=== PATIENT | male | born 1980 | race Caucasian/White ===

== ENCOUNTER 2020-06-03 06:29 | Emergency (ER) | payer MEDICARE ==
[~2020-06-03] VITALS: Ht 180.3 cm; Wt 77.0 kg
[~2020-06-03 06:29] MED LIST: INSULIN
[2020-06-03 06:31] VITALS: BP 141/91
--- NOTE | 2020-06-03 07:52 | NUR ---
NO ANSWER FROM TRIAGE
--- NOTE | 2020-06-03 08:17 | NUR ---
NO ANSWER FROM TRIAGE
== END 2020-06-03 08:19 | disposition left against medical advice (07) ==
LOC: ED 08:13
DX: R10.9 Unspecified abdominal pain (principal); Z53.21 Procedure and treatment not carried out due to patient leaving prior to being seen by health care provider

== ENCOUNTER 2020-06-11 19:34 | Emergency (ER) | payer MEDICARE ==
[~2020-06-11] VITALS: Ht 170.2 cm; Wt 69.0 kg
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
[2020-06-11 20:22] LABS: BASOPHILS # (AUTO) 0.13 x10^3/uL (0-0.1); BASOPHILS % (AUTO) 1 % (0-1); EOSINOPHILS % (AUTO) 1 % (1-7); LYMPHOCYTES # (AUTO) 4.71 x10^3/uL (1-3.4); LYMPHOCYTES % (AUTO) 40 % (22-44); MD NO; MEAN CORPUSCULAR HEMOGLOBIN 32.1 pg (27.5-34.5); MEAN CORPUSCULAR HGB CONC 33.2 g/dL (33.2-36.2); MEAN CORPUSCULAR VOLUME 96.6 fL (81-97); MEAN PLATELET VOLUME 8.1 fL (7.4-10.4); MONOCYTES # (AUTO) 0.91 x10^3/uL (0.2-0.8); MONOCYTES % (AUTO) 8 % (2-9); NEUTROPHILS # (AUTO) 5.87 x10^3/uL (1.8-6.8); NEUTROPHILS % (AUTO) 50 % (42-75); PLATELET COUNT 447 x10^3/uL (130-400); RED BLOOD COUNT 4.59 x10^6/uL (4.38-5.82); RED CELL DISTRIBUTION WIDTH 14.9 % (9.4-14.8)
[2020-06-11 20:34] LABS: ALBUMIN 3.3 g/dL (3.4-5.0); ANION GAP 2 mmol/L (5-15); CALCIUM 8.4 mg/dL (8.5-10.1); CHLORIDE 117 mmol/L (98-107); CREATININE 0.93 mg/dL (0.7-1.3); SALICYLATE LEVEL 2.7 mg/dL (2.8-20.0)
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
[2020-06-11 20:52] LABS: AMPHETAMINE SCREEN, URINE Negative (Negative); BARBITURATE SCREEN, URINE Negative (Negative); BENZODIAZEPINE SCREEN, URINE Negative (Negative); CANNABINOID SCREEN, URINE Positive (Negative); COCAINE SCREEN, URINE Negative (Negative); METHADONE SCREEN, URINE Negative (Negative); OPIATE SCREEN, URINE Negative (Negative)
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
[2020-06-11] MEDS ORDERED: ZIPRASIDONE 20 MG INJ IM ONE ×2 (21:04→21:30)
[2020-06-11] MEDS ORDERED: HALOPERIDOL 5 MG/ML ONE (21:57)
[2020-06-11] MEDS ORDERED: LORazepam 2 MG/ML, 1ML ONE (21:58)
[2020-06-11] MEDS ORDERED: DIPHENHYDRAMINE 50 MG/ML, 1ML ONE (21:58)
[2020-06-11] MEDS ORDERED: HALOPERIDOL 5 MG/ML IV ONE (22:00)
[2020-06-11] MEDS ORDERED: DIPHENHYDRAMINE 50 MG/ML, 1ML IVPush ONE (22:00)
--- NOTE | 2020-06-11 22:04 | NUR ---
PT CONTINUES TO YELL OUT. "I CANT DO THIS ANYMORE...JUST LET ME ". PT MEDICATED PER JAN. WILL CTM.
[2020-06-11] MEDS ORDERED: LORazepam 2 MG/ML, 1ML IVPush ONE (22:30)
--- NOTE | 2020-06-11 23:15 | NUR ---
PT RESTING C EYES CLOSED ON CART. RR EVEN NON LABORED.
--- NOTE | 2020-06-12 00:49 | NUR ---
PT RESTING C EYES CLOSED ON CART. RR EVEN NON LABORED. WILL CTM.
[2020-06-12] MEDS ORDERED: HALOPERIDOL 5 MG/ML IV ONE (01:00)
[2020-06-12] MEDS ORDERED: HALOPERIDOL 5 MG/ML ONE (01:33)
--- NOTE | 2020-06-12 01:57 | NUR ---
PT CONTINUES TO YELL OUT. ATTEMPTING TO REDIRECT PT.
[2020-06-12] MEDS ORDERED: KETAMINE 10 MG/ML, 20ML ONE (02:02)
[2020-06-12] MEDS ORDERED: KETAMINE 100 MG/ML, 5ML IM ONE (02:30)
--- NOTE | 2020-06-12 03:41 | NUR ---
PHLEB AT BS.
--- NOTE | 2020-06-12 04:00 | NUR ---
PT APPEARS MORE COOPERATIVE. SECURITY AT BS TO REDUCE RESTRAINTS TO 2PT. (LA & RL).
--- NOTE | 2020-06-12 05:00 | NUR ---
PT REMAINS CALM. REMAINING 2 RESTRAINTS REMOVED. WILL CTM.
--- NOTE | 2020-06-12 06:53 | NUR ---
RECEIVED REPORT FROM FLETCHER OOCNNOR, PLAN OF CARE DISCUSSED
--- NOTE | 2020-06-12 07:43 | NUR ---
PT ALERT AND COOPERATIVE AT THIS TIME. ROOM SECURED, SITTER AT DOOR. ORDRED MEAL, PROVIDED WATER. PT STATES HE WANT TO GO HOME. EXPLAINED NEED FOR MD TO EVALUATE.
--- NOTE | 2020-06-12 08:51 | NUR ---
LATE ENTRY FOR 729 DIET TRAY DELIVERED
[2020-06-12 09:51] VITALS: BP 158/90
--- NOTE | 2020-06-12 11:01 | NUR ---
DIET TRAY ORDERED
--- NOTE | 2020-06-12 11:08 | NUR ---
PT SLEEPING RESP EVEN AND UNLABORED, ROOM SECURED. SITTER AT DOOR
--- NOTE | 2020-06-12 13:23 | NUR ---
DIET TRAY DELIVERED.
== END 2020-06-12 13:51 | disposition home or self-care (01) ==
LOC: ED 06-12 04:30
DX: S02.2XXA Fracture of nasal bones, initial encounter for closed fracture (principal); S02.32XA Fracture of orbital floor, left side, initial encounter for closed fracture; S02.85XA Fracture of orbit, unspecified, initial encounter for closed fracture; F10.120 Alcohol abuse with intoxication, uncomplicated; R45.851 Suicidal ideations; X83.8XXA Intentional self-harm by other specified means, initial encounter; Y93.89 Activity, other specified; Y92.89 Other specified places as the place of occurrence of the external cause; Y99.8 Other external cause status
CPT/HCPCS: 36415; 70450; 70486; 72125; 80048; 80307; 82040; 82550; 85025; 96372; 96374; 96375; 96376; 99285; J1200; J1630; J2060; J3486

== ENCOUNTER 2020-06-18 19:07 | Emergency (ER) | payer MEDICARE ==
[~2020-06-18] VITALS: Ht 182.9 cm; Wt 80.0 kg
[2020-06-18 19:20] VITALS: BP 129/81
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
[2020-06-18 19:54] LABS: BASOPHILS # (AUTO) 0.07 x10^3/uL (0-0.1); BASOPHILS % (AUTO) 1 % (0-1); EOSINOPHILS # (AUTO) 0.11 x10^3/uL (0-0.4); EOSINOPHILS % (AUTO) 1 % (1-7); LYMPHOCYTES # (AUTO) 3.64 x10^3/uL (1-3.4); LYMPHOCYTES % (AUTO) 39 % (22-44); MD NO; MEAN CORPUSCULAR HEMOGLOBIN 31.9 pg (27.5-34.5); MEAN CORPUSCULAR HGB CONC 33.1 g/dL (33.2-36.2); MEAN CORPUSCULAR VOLUME 96.4 fL (81-97); MEAN PLATELET VOLUME 8.3 fL (7.4-10.4); MONOCYTES # (AUTO) 0.49 x10^3/uL (0.2-0.8); MONOCYTES % (AUTO) 5 % (2-9); NEUTROPHILS # (AUTO) 4.95 x10^3/uL (1.8-6.8); NEUTROPHILS % (AUTO) 54 % (42-75); PLATELET COUNT 368 x10^3/uL (130-400); RED BLOOD COUNT 4.37 x10^6/uL (4.38-5.82); RED CELL DISTRIBUTION WIDTH 14.6 % (9.4-14.8)
[2020-06-18 20:02] LABS: ALBUMIN 3.2 g/dL (3.4-5.0); ANION GAP 10 mmol/L (5-15); CALCIUM 7.6 mg/dL (8.5-10.1); CHLORIDE 113 mmol/L (98-107); SALICYLATE LEVEL 2.6 mg/dL (2.8-20.0)
[2020-06-18 20:05] LABS: ALANINE AMINOTRANSFERASE 101 U/L (12-78); ALKALINE PHOSPHATASE 198 U/L (45-117); BILIRUBIN,TOTAL 0.4 mg/dL (0.2-1.0); CREATININE 0.85 mg/dL (0.7-1.3); TOTAL PROTEIN 7.5 g/dL (6.4-8.2)
--- NOTE | 2020-06-18 20:46 | NUR ---
report to ivett sheets. as
--- NOTE | 2020-06-18 21:02 | NUR ---
patient is up pacing in the room, having a conversation with noone in the room, patient is redirectable and back on stretcher. awating for patient to sober up to reassess. sitter outside room. will continue to monitor
--- NOTE | 2020-06-18 22:26 | NUR ---
discharge paperwork given to patient with verbal understanding. patient steadily ambulated out of ER
== END 2020-06-18 22:29 ==
LOC: ED 22:23
DX: F10.120 Alcohol abuse with intoxication, uncomplicated (principal); R45.851 Suicidal ideations; F15.10 Other stimulant abuse, uncomplicated; F17.210 Nicotine dependence, cigarettes, uncomplicated; Z72.9 Problem related to lifestyle, unspecified; E11.9 Type 2 diabetes mellitus without complications; Y90.9 Presence of alcohol in blood, level not specified
CPT/HCPCS: 36415; 80053; 80307; 85025; 99283; 99406